=== PATIENT | male | born 1935 | race Caucasian/White ===

== ENCOUNTER 2018-10-19 20:06 | Emergency (ER) | payer MEDICARE, OTHER ==
[~2018-10-19] VITALS: Ht 172.7 cm; Wt 65.9 kg
[2018-10-19 20:55] LABS: BASOPHILS % (AUTO) 0.6 % (0-1); EOSINOPHILS # (AUTO) 0.2 X10'3 (0-0.9); EOSINOPHILS % (AUTO) 2.6 % (0-6); HEMATOCRIT 40.6 % (42.0-52.0); HEMOGLOBIN 13.9 g/dl (14.0-17.9); LYMPHOCYTES # (AUTO) 1.2 X10'3 (1.1-4.8); LYMPHOCYTES % (AUTO) 17.4 % (21-51); MEAN CORPUSCULAR HGB CONC 34.3 g/dL (33.0-36.5); MEAN CORPUSCULAR VOLUME 90.4 FL (78-98); MEAN PLATELET VOLUME 8.3 FL (7.4-10.4); MONOCYTES # (AUTO) 0.7 X10'3 (0-0.9); MONOCYTES % (AUTO) 9.4 % (2-12); NEUTROPHILS # (AUTO) 4.9 X10'3 (1.8-7.7); PLATELET COUNT 204 X10'3 (140-440); RED CELL DISTRIBUTION WIDTH 14.3 % (11.5-14.5)
[2018-10-19 21:07] LABS: PARTIAL THROMBOPLASTIN TIME 28 SECONDS (22-32)
[2018-10-19 21:09] LABS: ALANINE AMINOTRANSFERASE 26 U/L (12-78); ALBUMIN 3.6 G/DL (3.4-5.0); ALBUMIN/GLOBULIN RATIO 1.1 (1.1-1.5); ALKALINE PHOSPHATASE 88 IU/L (46-116); ANION GAP 6 (8-16); ASPARTATE AMINO TRANSFERASE 18 U/L (10-37); BILIRUBIN,TOTAL 0.2 MG/DL (0.1-1.0); BLOOD UREA NITROGEN 15 MG/DL (7-18); BUN/CREATININE RATIO 17.9 (5.4-32.0); CALCIUM 8.2 MG/DL (8.5-10.1); CHLORIDE 102 MMOL/L (99-107); CREATININE 0.84 MG/DL (0.60-1.10); POTASSIUM 3.7 MMOL/L (3.5-5.1); SODIUM 136 MMOL/L (135-145); TOTAL CARBON DIOXIDE 27.6 MMOL/L (24-32); TOTAL PROTEIN 6.9 G/DL (6.4-8.2); eGFR 88 ML/MIN
[2018-10-19 21:10] LABS: GLUCOSE 169 MG/DL (70-104)
[2018-10-19 21:27] LABS: CLARITY,URINE CLEAR (Clear); COLOR,URINE STRAW (Yellow); GLUCOSE, URINE 100 mg/dl (Neg); KETONES,URINE NEGATIVE (Neg); LEUKOCYTE ESTERASE ,URINE NEGATIVE (Neg); NITRITES, URINE NEGATIVE (Neg); OCCULT BLOOD,URINE NEGATIVE (Neg); PROTEIN,URINE NEGATIVE (Neg); UROBILINOGEN,URINE 0.2 E.U/dL (0.2-1.0)
[2018-10-19 21:28] LABS: UA COLLECTION TYPE CLN CATCH MIDSTREAM
[2018-10-19 21:56] VITALS: BP 192/101
[2018-10-20] MEDS ORDERED: AMLO10TA4 PO (16:09)
== END 2018-10-19 21:52 | disposition home or self-care (01) ==
LOC: ER 20:07
DX: R53.1 Weakness (principal); R42 Dizziness and giddiness; I10 Essential (primary) hypertension; E78.00 Pure hypercholesterolemia, unspecified; Z98.890 Other specified postprocedural states; Z79.899 Other long term (current) drug therapy
CPT/HCPCS: 36415; 71045; 80053; 81003; 84484; 85025; 85610; 85730; 93005; 99284

== ENCOUNTER 2018-10-20 15:46 | Emergency (ER) | payer MEDICARE, OTHER ==
[~2018-10-20] VITALS: Ht 172.7 cm; Wt 66.0 kg
[2018-10-20] MEDS ORDERED: AMLO10TA4 PO (16:09)
[2018-10-20] MEDS ORDERED: cloNIDine 0.1 mg tablet PO ONE (16:10)
--- NOTE | 2018-10-20 16:26 | NUR ---
CLARIFIED WITH MARIFER TRAN ABOUT PT MED PT HR IS 58 AND BP 180/105 PER MARIFER TRAN PT STILL HAVE CLONIDINE PRESCRIBED FOR HIGH BP.
[2018-10-20 17:12] VITALS: BP 201/101
== END 2018-10-20 17:15 | disposition home or self-care (01) ==
LOC: ER 15:46
DX: I10 Essential (primary) hypertension (principal); R53.1 Weakness; E78.00 Pure hypercholesterolemia, unspecified; Z98.890 Other specified postprocedural states; Z79.899 Other long term (current) drug therapy
CPT/HCPCS: 93005; 99283

== ENCOUNTER 2018-10-20 21:05 | Observation (INO) | payer MEDICARE, OTHER ==
[~2018-10-20] VITALS: Ht 172.7 cm; Wt 60.1 kg
[~2018-10-20 21:05] MED LIST: AMLO10TA4 PO
[2018-10-20] MEDS ORDERED: normal saline 1000ml 1,000 ML IV ONE (21:45)
[2018-10-20 22:22] LABS: BASOPHILS % (AUTO) 0.7 % (0-1); EOSINOPHILS # (AUTO) 0.1 X10'3 (0-0.9); EOSINOPHILS % (AUTO) 1.5 % (0-6); HEMATOCRIT 41.8 % (42.0-52.0); HEMOGLOBIN 13.9 g/dl (14.0-17.9); LYMPHOCYTES # (AUTO) 1.1 X10'3 (1.1-4.8); LYMPHOCYTES % (AUTO) 16.4 % (21-51); MEAN CORPUSCULAR HEMOGLOBIN 30.5 PG (27.0-31.0); MEAN CORPUSCULAR HGB CONC 33.4 g/dL (33.0-36.5); MEAN CORPUSCULAR VOLUME 91.4 FL (78-98); MEAN PLATELET VOLUME 8.5 FL (7.4-10.4); MONOCYTES # (AUTO) 0.8 X10'3 (0-0.9); MONOCYTES % (AUTO) 11.4 % (2-12); NEUTROPHILS # (AUTO) 4.8 X10'3 (1.8-7.7); PLATELET COUNT 220 X10'3 (140-440); RED BLOOD COUNT 4.57 X10'6 (4.70-6.10); RED CELL DISTRIBUTION WIDTH 14.4 % (11.5-14.5); WHITE BLOOD COUNT 6.8 X10'3 (4.5-11.0)
[2018-10-20] MEDS ORDERED: aspirin 325mg tablet PO ONE (22:25)
[2018-10-20 22:31] LABS: ALANINE AMINOTRANSFERASE 29 U/L (12-78); ALBUMIN/GLOBULIN RATIO 1.2 (1.1-1.5); ALKALINE PHOSPHATASE 80 IU/L (46-116); ANION GAP 9 (8-16); ASPARTATE AMINO TRANSFERASE 15 U/L (10-37); BILIRUBIN,TOTAL 0.4 MG/DL (0.1-1.0); BLOOD UREA NITROGEN 12 MG/DL (7-18); BUN/CREATININE RATIO 13.2 (5.4-32.0); CALCIUM 9.1 MG/DL (8.5-10.1); CHLORIDE 103 MMOL/L (99-107); CREATININE 0.91 MG/DL (0.60-1.10); GLUCOSE 125 MG/DL (70-104); POTASSIUM 4.4 MMOL/L (3.5-5.1); SODIUM 138 MMOL/L (135-145); TOTAL CARBON DIOXIDE 26.5 MMOL/L (24-32); TOTAL PROTEIN 7.3 G/DL (6.4-8.2); eGFR 80 ML/MIN
[2018-10-20 22:41] LABS: MAGNESIUM 2.1 MG/DL (1.5-2.4); PHOSPHORUS 3.3 MG/DL (2.3-4.5)
[2018-10-20] MEDS ORDERED: acetaminophen 325mg tablet PO PRN ×2 (23:25)
[2018-10-20] MEDS ORDERED: potassium CL 10mEq/100ml bag 100 ML IV PRN ×2 (23:25)
[2018-10-20] MEDS ORDERED: magnesium 2GM in 50ml NS 50 ML IV PRN (23:25)
[2018-10-20] MEDS ORDERED: magnesium hydroxide 30ml (MOM) UD suspension PO PRN (23:25)
[2018-10-20] MEDS ORDERED: magnesium 4gm in 100ml NS 100 ML IV PRN (23:25)
[2018-10-20] MEDS ORDERED: ondansetron/PF 4mg/2ml inj IV PRN (23:25)
[2018-10-20] MEDS ORDERED: magnesium Cl slow-release 64mg tablet PO PRN (23:25)
[2018-10-20] MEDS ORDERED: potassium Cl 20 mEq SR tablet PO PRN ×2 (23:25)
[2018-10-20] MEDS ORDERED: mag hydrox/Alum hydrox/simeth 30ml oral suspension PO PRN (23:25)
[2018-10-21] VITALS (7 sets, daily range): BP systolic 163–183; BP diastolic 67–89
--- NOTE | 2018-10-21 01:00 | NUR ---
PT ARRIVED TO ROOM 4014B FROM ER. PT AMBULATED FROM WC TO BED. PT HAS BEEN ORIENTED TO THE ROOM. RECEIVED REPORT FROM ALVIN RIVAS PRIOR TO PT'S ARRIVAL.
[2018-10-21 06:03] LABS: BASOPHILS % (AUTO) 0.7 % (0-1); EOSINOPHILS # (AUTO) 0.2 X10'3 (0-0.9); EOSINOPHILS % (AUTO) 3.3 % (0-6); HEMATOCRIT 41.1 % (42.0-52.0); HEMOGLOBIN 13.9 g/dl (14.0-17.9); LYMPHOCYTES # (AUTO) 1.2 X10'3 (1.1-4.8); LYMPHOCYTES % (AUTO) 21.5 % (21-51); MEAN CORPUSCULAR HEMOGLOBIN 30.4 PG (27.0-31.0); MEAN CORPUSCULAR HGB CONC 33.7 g/dL (33.0-36.5); MEAN CORPUSCULAR VOLUME 90.3 FL (78-98); MEAN PLATELET VOLUME 8.3 FL (7.4-10.4); MONOCYTES # (AUTO) 0.7 X10'3 (0-0.9); MONOCYTES % (AUTO) 11.9 % (2-12); NEUTROPHILS # (AUTO) 3.6 X10'3 (1.8-7.7); NEUTROPHILS % (AUTO) 62.6 % (42-75); PLATELET COUNT 210 X10'3 (140-440); RED BLOOD COUNT 4.55 X10'6 (4.70-6.10); RED CELL DISTRIBUTION WIDTH 14.4 % (11.5-14.5); WHITE BLOOD COUNT 5.8 X10'3 (4.5-11.0)
--- NOTE | 2018-10-21 06:16 | NUR ---
Problems reprioritized. Patient report given, questions answered & plan of care reviewed with ALVIN HAIRSTON.
[2018-10-21 06:17] LABS: ALBUMIN 3.7 G/DL (3.4-5.0); ANION GAP 10 (8-16); BLOOD UREA NITROGEN 11 MG/DL (7-18); BUN/CREATININE RATIO 15.1 (5.4-32.0); CALCIUM 9.2 MG/DL (8.5-10.1); CHLORIDE 104 MMOL/L (99-107); CHOL/HDL RATIO 7.6 (0.00-4.99); CHOLESTEROL 219 MG/DL (0-200); CREATININE 0.73 MG/DL (0.60-1.10); GLUCOSE 96 MG/DL (70-104); HDL CHOLESTEROL 29 MG/DL (35-60); LDL CHOLESTEROL 161 MG/DL (50-100); POTASSIUM 3.9 MMOL/L (3.5-5.1); SODIUM 140 MMOL/L (135-145); TRIGLYCERIDES 123 MG/DL (20-135); eGFR > 90 ML/MIN
--- NOTE | 2018-10-21 06:25 | NUR ---
received report from mathew garza
[2018-10-21] MEDS: K and/or MAG REPLACEMENT MC SCH (06:57)
[2018-10-21 06:58] LABS: HEMOGLOBIN A1C 5.8 % (4.5-6.2)
[2018-10-21] MEDS: aspirin 325mg tablet, delayed-release (Ecotrin) PO SCH (07:16)
[2018-10-21] MEDS: amLODIPine 5mg tablet PO SCH (07:16)
[2018-10-21] MEDS: enoxaparin 40mg/0.4ml syringe SQ SCH (07:21)
[2018-10-21] MEDS: atorvastatin 20mg tablet PO SCH (09:00)
--- NOTE | 2018-10-21 15:11 | NUR ---
called dr. acosta letting him know that tests are finished and that pt would like to be d/c [facility] and that pt has been anxious all day about going home, also when physical therapy worked with pt and told nursing staff that pt has been leaning to the left, unsure if this leaning is new, due to pt bp being extremely elevated therefore physical therapy was unable to walk pt til now, dr. acosta told nursing staff to call a stroke alert, nursing staff called alert, nursing staff notified CT of scan, stroke nurse notified and is up on floor to eval pt continue to monitor Addendum: 10/21/18 at 1531 by Dimple Guthrie RN all through out day nursing staff asked pt to walk to bathroom w/nursing staff so they can evaluate pt, pt told nursing staff that he did not need to walk w/help to the bathroom, continue to educate and monitor pt
--- NOTE | 2018-10-21 15:42 | NUR ---
Stroke alert called - Pt. seen at 1515 after PT noted a listing gait. MRI this am shows a positive thalamic stroke. requests NC CT to r/o new bleed. Not a TPA candidate d/t no LKN. called Dr. Adkins, neurology, to evaluate patient.
[2018-10-21] MEDS ORDERED: polyvinyl alcohol ophthalmic drops 15ml bottle EACHEYE PRN (17:55)
[2018-10-21] MEDS ORDERED: diphenhydrAMINE 25mg capsule PO PRN (17:55)
--- NOTE | 2018-10-21 18:30 | NUR ---
Patient in room [facility]TH[facility] 4014. I have received report from mathew Pinzon and had the opportunity to ask questions and assume patient care.
--- NOTE | 2018-10-21 18:40 | NUR ---
gave report to mathew garza
[2018-10-21] MEDS ORDERED: Melatonin 3mg tablet PO SCH (21:00)
[2018-10-22 02:15] VITALS: BP 158/78
[2018-10-22 05:50] LABS: BASOPHILS % (AUTO) 0.6 % (0-1); EOSINOPHILS # (AUTO) 0.2 X10'3 (0-0.9); EOSINOPHILS % (AUTO) 2.6 % (0-6); HEMATOCRIT 40.7 % (42.0-52.0); HEMOGLOBIN 13.8 g/dl (14.0-17.9); LYMPHOCYTES # (AUTO) 1.4 X10'3 (1.1-4.8); LYMPHOCYTES % (AUTO) 18.7 % (21-51); MEAN CORPUSCULAR HEMOGLOBIN 30.4 PG (27.0-31.0); MEAN CORPUSCULAR VOLUME 89.4 FL (78-98); MONOCYTES # (AUTO) 0.9 X10'3 (0-0.9); NEUTROPHILS # (AUTO) 4.9 X10'3 (1.8-7.7); NEUTROPHILS % (AUTO) 66.1 % (42-75); PLATELET COUNT 216 X10'3 (140-440); RED BLOOD COUNT 4.55 X10'6 (4.70-6.10); RED CELL DISTRIBUTION WIDTH 14.4 % (11.5-14.5); WHITE BLOOD COUNT 7.4 X10'3 (4.5-11.0)
[2018-10-22 06:00] VITALS: BP 175/79
[2018-10-22 06:05] LABS: ALBUMIN 3.6 G/DL (3.4-5.0); ANION GAP 7 (8-16); BLOOD UREA NITROGEN 16 MG/DL (7-18); BUN/CREATININE RATIO 18.6 (5.4-32.0); CALCIUM 9.5 MG/DL (8.5-10.1); CHLORIDE 101 MMOL/L (99-107); CREATININE 0.86 MG/DL (0.60-1.10); GLUCOSE 105 MG/DL (70-104); MAGNESIUM 2.1 MG/DL (1.5-2.4); POTASSIUM 3.9 MMOL/L (3.5-5.1); SODIUM 135 MMOL/L (135-145); TOTAL CARBON DIOXIDE 27.3 MMOL/L (24-32); eGFR 85 ML/MIN
--- NOTE | 2018-10-22 06:37 | NUR ---
Problems reprioritized. Patient report given, questions answered & plan of care reviewed with ALVIN POE.
[2018-10-22] MEDS: K and/or MAG REPLACEMENT MC SCH (07:10)
[2018-10-22] MEDS: enoxaparin 40mg/0.4ml syringe SQ SCH (08:32)
[2018-10-22] MEDS: amLODIPine 5mg tablet PO SCH (08:32)
[2018-10-22] MEDS: aspirin 325mg tablet, delayed-release (Ecotrin) PO SCH (08:33)
[2018-10-22] MEDS: atorvastatin 20mg tablet PO SCH (08:33)
[2018-10-22 10:00] VITALS: BP 177/79
[2018-10-22] MEDS ORDERED: ATOR20TA66 PO (10:25)
[2018-10-22] MEDS ORDERED: ASPI-41 PO (10:25)
[2018-10-22] MEDS ORDERED: lisinopril 20mg tablet PO SCH (10:25)
[2018-10-22] MEDS ORDERED: LISI-600 PO (10:25)
--- NOTE | 2018-10-22 13:00 | NUR ---
Spoke with Dontrell regarding discharge, concerned about home health and PCP appointment. Educated her case management was working on it. Discharged patient, he received a cane and follow up appointment. More education provided on the acronymn FAST and if any of his baseline symptoms were to exacerbate or get worse to come back to the ER.
== END 2018-10-22 12:40 | disposition home health service (06) ==
LOC: ER 21:05 → ORTHO 4S 10-21 00:20 → INTOOBSV 10-21 00:20 → UNDOADMOB 10-21 00:20 → ORTHO 4S 10-21 00:28 → CMPBEDREQ 10-21 00:43
PROVIDERS: ADMIT Hospitalist; ATTEND Family Medicine
DX: I63.9 Cerebral infarction, unspecified (principal); E78.00 Pure hypercholesterolemia, unspecified; I10 Essential (primary) hypertension; Z98.890 Other specified postprocedural states; Z79.82 Long term (current) use of aspirin
CPT/HCPCS: 36415; 70450; 70544; 70551; 71045; 80048; 80053; 80061; 82140; 83036; 83735; 84100; 84443; 85025; 85610; 87081; 93005; 93306; 93880; 96372; 97110; 97116; 97162; 97530; 99284; G0378; Q0163; J1650